=== PATIENT | female | born 1960 | race Caucasian/White ===

== ENCOUNTER 2019-07-15 06:21 | Emergency (ER) | payer OTHER ==
--- OUTSIDE RECORDS SUMMARY | 2019-07-15 06:31 | XMS REPORT | Continuity of Care Document ---
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 Onset: 05/16/2014 Palpitations Fili Barone M.D., [facility], Onset: 06/26/2014 [facility] Social History Type Date Description Comments Sex Unknown Tobacco Use Start: Unknown Never Smoked Cigarettes Smoking Status Reviewed: 07/03/19 Never Smoked Cigarettes ETOH Use Denies alcohol use Tobacco Use Start: Unknown Patient has never smoked Recreational Drug Use Denies Drug Use Exercise Type/Frequency Exercises regularly Allergies, Adverse Reactions, Alerts Active Allergies Reaction Severity Comments Date Penicillin hivese 06/12/2012 Erythromycin hives 06/12/2012 Tetracycline hives 06/12/2012 Cipro hives 06/12/2012 Sulfa itching 06/12/2012 Monistat itching 06/12/2012 Dilantin brain swelling taken with phenobarb 06/12/2012 Phenobarbital brain swelling with dilantin 06/12/2012 Mold respiratory congestion 06/12/2012 Doxycycline 05/16/2014 Medications Active Medications SIG Qnty Indications Ordering Provider Date Gabapentin Take 1 Capsule By Unknown 400mg Capsules Mouth Every Day Before Bedtime Immunizations Description No Information Available Vital Signs Date Vital Result Comment 07/03/2019 8:02am Height 62 inches 5'2" Weight 130.00 lb Heart Rate 63 /min BP Systolic 120 mmHg BP Diastolic 70 mmHg O2 % BldC Oximetry 99 % BMI (Body Mass Index) 23.8 kg/m2 04/04/2019 9:37am Height 62 inches 5'2" Weight 129.12 lb Heart Rate 52 /min BP Systolic Sitting 106 mmHg Lue reg cuff BP Diastolic Sitting 60 mmHg Lue reg cuff Respiratory Rate 16 /min O2 % BldC Oximetry 98 % On Ra BMI (Body Mass Index) 23.6 kg/m2 Results Description No Information Available Procedures Description No Information Available Medical Devices Description No Information Available Encounters Type Date Location Provider Dx Diagnosis Office Visit 04/04/2019 Pulmonology And Rubina Ramirez, G47.33 Obstructive sleep 9:45a [facility] [place] apnea (adult) [facility] (pediatric) Assessments Date Code Description Provider 07/03/2019 G47.33 Obstructive sleep apnea (adult) Rubina Ramirez DNP, RN, [facility] (pediatric) 04/04/2019 G47.33 Obstructive sleep apnea (adult) Rubina Ramirez DNP, RN, [facility] (pediatric) Plan of Treatment Future Appointment(s):07/08/2020 8:15 am - Rubina Ramirez DNP, RN, [place] at [facility]07/03/2019 - Rubina Ramirez DNP RN, PACKAGE LINE OPERATOR- BCG47.33 Obstructive sleep apnea (adult) (pediatric)Comments:On BiPAP AHI 2.5/ hour, normalFollow up:1 yearRecommendations:Continue PAP device, Benefitting and compliant with treatment. Cleaning Wipe off mask daily (baby wipe-no scent , or warm water) Clean mask, tubing, filter, and water chamber weekly in mild no scent dish soap and water. Hang to dry. If you have any sleepiness while driving you MUST avoid operating a vehicle or machinery. If you have difficulty with your equipment, or need to replace your mask or hoses, please contact your homecare agency. A weight change of 20 pounds or more may have an effect onyour equipment; if you are experiencing problems please call for an appointment. If you have any further questions, please call the [facility] at . Functional Status Description No Information Available Mental Status Description No Information Available Referrals Description No Information Available
--- OUTSIDE RECORDS SUMMARY | 2019-07-15 06:31 | XMS REPORT | Continuity of Care Document ---
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 Problems Description No Information Available Social History Type Date Description Comments Sex Unknown ETOH Use Denies alcohol use Tobacco Use Start: Unknown Patient has never smoked Smoking Status Reviewed: 06/05/19 Patient has never smoked Allergies, Adverse Reactions, Alerts Active Allergies Reaction Severity Comments Date Penicillin 01/01/2019 Erythromycin 01/01/2019 Doxycycline 01/01/2019 Cipro 01/01/2019 Sulfa Antibiotics 01/01/2019 Monistat 01/01/2019 Tramadol 01/01/2019 Phenobarbital 01/01/2019 Dilantin 01/01/2019 Medications Active Medications SIG Qnty Indications Ordering Provider Date Gabapentin Unknown 400mg Capsules Immunizations Description No Information Available Vital Signs Date Vital Result Comment 01/01/2019 2:11pm Intraocular Pressure Right Eye 16 mmHg Intraocular Pressure Left Eye 16 mmHg Results Description No Information Available Procedures Date Code Description Status 01/01/2019 28695 Refraction Completed 01/01/2019 05571 Eye Exam New Intermediate Completed Medical Devices Description No Information Available Encounters Description No Information Available Assessments Date Code Description Provider 06/05/2019 H52.13 Myopia, bilateral Stefano Pelayo, OD 06/05/2019 H25.13 Age-related nuclear cataract, bilateral Stefano Pelayo, OD 01/01/2019 H25.13 Age-related nuclear cataract, bilateral Stefano Pelayo, OD 01/01/2019 H50.34 Intermittent alternating exotropia Stefano Pelayo, OD 01/01/2019 H52.13 Myopia, bilateral Stefano Pelayo, OD Plan of Treatment 06/05/2019 - Stefano Pelayo, ODH52.13 Myopia, [id number] Age-related nuclear cataract, bilateralFollow up:yearly full A-scans if desired Functional Status Description No Information Available Mental Status Description No Information Available Referrals Description No Information Available
--- NOTE | 2019-07-15 06:32 | ED ---
Palpitations / Dysrhythmia - HPI Summary HPI Summary: Pt. is a 58 y.o female who presents to the ER after an episode of sharp right sided chest pain and palpitations. Pt. states she woke up just prior to arrival and felt palpitations while lying in bed. Pt. states she then started to feel a sharp pain to the right side of her chest that radiated to her shoulder/neck. Pain was worse with inspiration and pt. felt SOB. Also notes nausea. Pain is feeling better since in ER. Past hx of "vasculopathy" and take gabapentin. Denies hx of smoking, HTN, HLD, clot d/o. Denies family hx of CAD. Denies recent illness, fever, cough, abd. pain, V/D. Sxs are moderate in severity. No current modifying factors. - History of Current Complaint Hx Obtained From: Patient - Allergy/Home Medications Allergies/Adverse Reactions: Allergies Allergy/AdvReac Type Severity Reaction Status Date / Time phenobarbital Allergy Severe Swelling Verified 07/15/19 06:33 phenytoin [From Dilantin] Allergy Severe Swelling Verified 07/15/19 06:33 sulfamethoxazole Allergy Intermediate Hives Verified 07/15/19 06:33 [From Bactrim] tramadol Allergy Intermediate Altered Verified 07/15/19 06:33 Mental Status trimethoprim [From Bactrim] Allergy Intermediate Hives Verified 07/15/19 06:33 cefaclor [From Ceclor] Allergy Mild Hives Verified 07/15/19 06:33 erythromycin base Allergy Mild Hives Verified 07/15/19 06:33 Penicillins Allergy Mild Hives Verified 07/15/19 06:33 Sulfa (Sulfonamide Allergy Mild Hives Verified 07/15/19 06:33 Antibiotics) Tetracyclines Allergy Mild Hives Verified 07/15/19 06:33 Home Medications: Home Medications Gabapentin 400 mg PO BEDTIME 07/15/19 [History Confirmed 07/15/19] PMH/Surg Hx/FS Hx/Imm Hx Previously Healthy: Yes Endocrine/Hematology History: Reports: Other Endocrine/Hematological Disorders - Recently started hromone replacement therapy Denies: Hx Diabetes Cardiovascular History: Denies: Hx Hypertension Respiratory History: Reports: Hx Sleep Apnea - current CPAP user History: Denies: Hx Renal Disease Musculoskeletal History: Denies: Hx Rheumatoid Arthritis, Hx Osteoporosis - OSTEOPENIA - BORDERLINE OSTEOPOROSIS Sensory History: Reports: Hx Contacts or Glasses Opthamlomology History: Reports: Hx Contacts or Glasses - Cancer History Hx Chemotherapy: No Hx Radiation Therapy: No - Surgical History Surgery Procedure, Year, and Place: uterine repair 03, umbilical repair 00, fibriod removed 03, fibroademona right breast, tympanoplasty left and right, tonsillectomy 67, nerve repair hand 68 Infectious Disease History: No Infectious Disease History: Reports: Traveled Outside the [place] in Last 30 Days - [place] - Family History Known Family History: Positive: Non-Contributory - Social History Occupation: Employed Full-time Lives: With Family Review of Systems Constitutional: Negative Negative: Fever Eyes: Negative ENT: Negative Positive: Palpitations, Chest Pain Positive: Shortness Of Breath. Negative: Cough Positive: Nausea. Negative: Abdominal Pain, Vomiting, Diarrhea Genitourinary: Negative Musculoskeletal: Negative Skin: Negative Neurological: Negative All Other Systems Reviewed And Are Negative: Yes Physical Exam Triage Information Reviewed: Yes Vital Signs On Initial Exam: Initial Vitals Temp Pulse Resp BP Pulse Ox 98.0 F 57 18 165/89 100 07/15/19 06:27 07/15/19 06:27 07/15/19 06:27 07/15/19 06:27 07/15/19 06:27 Vital Signs Reviewed: Yes Appearance: Positive: Well-Appearing - Pt. lying in bed in NAD. Appears anxious. at bedside. Skin: Positive: Warm, Dry Head/Face: Positive: Normal Head/Face Inspection Eyes: Positive: Normal, EOMI, LAUREL Neck: Positive: Supple Respiratory/Lung Sounds: Positive: Clear to Auscultation, Breath Sounds Present Cardiovascular: Positive: Normal, RRR Abdomen Description: Positive: Nontender, Soft Musculoskeletal: Positive: Normal, Strength/ROM Intact Neurological: Positive: Normal, CN Intact II-III Psychiatric: Positive: Affect/Mood Appropriate Procedures - Sedation Patient Received Moderate/Deep Sedation with Procedure: No Diagnostics - Vital Signs Vital Signs Temp Pulse Resp BP Pulse Ox 07/15/19 06:29 51 22 100 07/15/19 06:27 98.0 F 57 18 165/89 100 - Laboratory Result Diagrams: 07/15/19 06:38 07/15/19 06:38 Lab Statement: Any lab studies that have been ordered have been reviewed, and results considered in the medical decision making process. Course/Dx - Course Course Of Treatment: Pt. presenting after episode of sharp right sided CP. Afebriel with stable VS. Pt. notes since being in the ED pain has improved. Pt. placed on monitor and givn 4 baby ASA. ECG done at 0643 shows a sinus bradycardia of 49bpm, normal axis, no ST elevation or depression. HEART score of 1, low risk. Labs are unremarkable including negative trop and ddimer. CXR negative for acute findings per radiology. On re-exam pt. notes she is feeling much better and back to baseline. Will obtain second troponin and plan for dc if negative. Pt. comfortable with plan. Second troponin 0. Will dc home. To call pcp tomorrow for close f.u apt. and further outpt. testing such as a stress test. Pt. will return to er if sxs change or worsen. - Diagnoses Differential Diagnosis/HQI/PQRI: Positive: Hypokalemia, Myocarditis, Panic Disorder, Pericarditis, Pulmonary Embolism Provider Diagnoses: Atypical chest pain Discharge ED - Sign-Out/Discharge Documenting (check all that apply): Patient Departure - Discharge Plan Condition: Improved Disposition: HOME Patient Education Materials: Chest Pain (ED) Referrals: Snow Stratton MD [Primary Care Provider] - Additional Instructions: Please call your PCP tomorrow to schedule a close follow up appointment for further testing such as a stress test Return to ER if symptoms change or worsen - Billing Disposition and Condition Condition: IMPROVED Disposition: Home - Attestation Statements Provider Attestation: I was available for consult. This patient was seen by the [facility]. The patient was not presented to, seen by, or examined by me. Bruno Lock MD
[2019-07-15] MEDS ORDERED: Aspirin 81 mg CHEW TAB* 81 MG TAB.CHEW PO ONE (06:34)
[2019-07-15 06:50] LABS: ABS Basophils 0.1 10^3/ul (0-0.2); ABS Eosinophils 0.1 10^3/ul (0-0.6); ABS Lymphocytes 2.5 10^3/ul (1.0-4.8); ABS Monocytes 0.6 10^3/ul (0-0.8); ABS Neutrophils 3.5 10^3/ul (1.5-7.7); Eosinophil % 1.5 %; Hematocrit 42 % (35-47); Hemoglobin 14.5 g/dL (12.0-16.0); Mean Corpuscular HGB Conc 35 g/dL (31-36); Mean Corpuscular Hemoglobin 32 pg (27-31); Mean Corpuscular Volume 93 fL (80-97); Mean Platelet Volume 9.3 fL (7.4-10.4); Nucleated Red Blood Cells % 0.2; Platelet Count 188 10^3/uL (150-450); Red Cell Distribution Width 13 % (10-15); White Blood Count 6.6 10^3/uL (3.5-10.8)
[2019-07-15 06:59] LABS: Activated Partial Thrombo Time 34.3 seconds (26.0-38.0); INR 0.97 (0.82-1.09)
[2019-07-15 07:06] LABS: Albumin 4.5 g/dL (3.2-5.2); Albumin/Globulin Ratio 1.5 (1-3); BUN/Creatinine Ratio 15.6 (8-20); Calcium 9.7 mg/dL (8.6-10.3); EGFR African American 78.1 (>60); EGFR Non-African American 64.5 (>60); Globulin 3.1 g/dL (2-4); Total Bilirubin 1.1 mg/dL (0.2-1.0); Total Protein 7.6 g/dL (6.4-8.9)
[2019-07-15 07:25] LABS: TSH (Thyroid Stimulating Horm) 1.76 mcIU/mL (0.34-5.60)
[2019-07-15 10:16] VITALS: BP 136/67
== END 2019-07-15 10:15 | disposition home or self-care (01) ==
LOC: ED 06:21
DX: R07.89 Other chest pain (principal); Z79.899 Other long term (current) drug therapy; Z88.1 Allergy status to other antibiotic agents; Z88.5 Allergy status to narcotic agent; Z88.0 Allergy status to penicillin; Z88.2 Allergy status to sulfonamides; Z88.8 Allergy status to other drugs, medicaments and biological substances
CPT/HCPCS: 36415; 71045; 80053; 83605; 83735; 84443; 84484; 85025; 85379; 85610; 85730; 93005; 99283; A9270-GY